=== PATIENT | female | born 1940 | race Caucasian/White ===

== ENCOUNTER 2022-11-08 05:55 | Outpatient (REF) | payer MEDICARE, SELFPAY ==
[2022-11-08 06:42] LABS: Alanine Aminotransferase 12 U/L (0-31); Albumin Level 2.3 g/dL (3.5-5.0); Alkaline Phosphatase 55 U/L (39-117); Anion Gap 13 (12-20); Aspartate Amino Transferase 19 U/L (5-31); Bilirubin Total 0.2 mg/dL (0.0-1.0); Blood Urea Nitrogen 17 mg/dL (9-16); Calcium 7.7 mg/dL (8.4-10.2); Carbon Dioxide 21 mmol/L (22-29); Chloride 103 mmol/L (96-108); Estimated Glomerular Filt Rate > 60; Glucose Random 73 mg/dL (60-115); Potassium 4.3 mmol/L (3.3-5.1); Sodium 133 mmol/L (135-145); Total Protein 5.3 g/dL (6.5-8.0)
[2022-11-08 06:59] LABS: Basophils Absolute Auto 0.1 X10*3/uL (0.0-0.2); Basophils Percent Auto 0.7 % (0-2); Eosinophils Absolute Auto 0.3 X10*3/uL (0.0-0.4); Hematocrit 22.6 % (37.0-47.0); Imm Gran Abs Auto 0.07 X10*3/uL (0.00-0.03); Imm Gran Pct Auto 0.6 % (0.0-0.4); Lymphocytes Absolute Auto 3.5 X10*3/uL (1.2-4.9); MANUAL DIFF FLAG SCAN; Mean Corpuscular Hemoglobin 25.8 pg (27.0-33.0); Mean Corpuscular Volume 83.4 fL (80.0-98.0); Mean Platelet Volume 9.4 fL (9.4-12.3); Monocytes Absolute Auto 1.5 X10*3/uL (0.1-1.2); Monocytes Percent Auto 12.3 % (2-11); Neutrophils Percent Auto 56.4 % (45-73); Platelet Count 371 X10*3/uL (160-400); Red Blood Count 2.71 X10*6/uL (4.20-5.50); Red Cell Distribution Width 14.8 % (11.0-16.0); SCAN SMEAR FLAG 1; White Blood Count 12.4 X10*3/uL (4.8-10.8)
[2022-11-08 08:16] LABS: SLIDE REVIEW VERIFIED
== END 2022-11-08 05:56 | disposition home or self-care (01) ==
LOC: HO.MMNH2L 05:55
PROVIDERS: Visit Provider Family Medicine
DX: I10 Essential (primary) hypertension (principal); E11.9 Type 2 diabetes mellitus without complications; E78.5 Hyperlipidemia, unspecified
CPT/HCPCS: 36415; 80053; 85025

== ENCOUNTER 2022-11-15 06:10 | Outpatient (REF) | payer MEDICARE, SELFPAY ==
[2022-11-15 06:03] LABS: MANUAL DIFF FLAG NO
[2022-11-15 07:09] LABS: Basophils Absolute Auto 0.1 X10*3/uL (0.0-0.2); Basophils Percent Auto 0.9 % (0-2); Eosinophils Absolute Auto 0.5 X10*3/uL (0.0-0.4); Eosinophils Percent Auto 4.6 % (0-4); Hematocrit 22.3 % (37.0-47.0); Imm Gran Abs Auto 0.05 X10*3/uL (0.00-0.03); Imm Gran Pct Auto 0.4 % (0.0-0.4); Lymphocytes Absolute Auto 2.8 X10*3/uL (1.2-4.9); Lymphocytes Percent Auto 24.3 % (20-40); Mean Corpuscular HGB Conc 30.9 g/dl (31.0-35.0); Mean Corpuscular Hemoglobin 25.7 pg (27.0-33.0); Mean Corpuscular Volume 83.2 fL (80.0-98.0); Mean Platelet Volume 9.5 fL (9.4-12.3); Monocytes Absolute Auto 1.3 X10*3/uL (0.1-1.2); Neutrophils Absolute Auto 6.7 x10*3/uL (2.0-8.3); Neutrophils Percent Auto 58.8 % (45-73); Platelet Count 415 X10*3/uL (160-400); Red Blood Count 2.68 X10*6/uL (4.20-5.50); Red Cell Distribution Width 14.9 % (11.0-16.0); White Blood Count 11.4 X10*3/uL (4.8-10.8)
[2022-11-15 07:28] LABS: Hemoglobin 6.9 g/dl (12.0-16.0)
[2022-11-15 09:55] LABS: Anion Gap 11 (12-20); Blood Urea Nitrogen 20 mg/dL (9-16); Carbon Dioxide 21 mmol/L (22-29); Chloride 103 mmol/L (96-108); Estimated Glomerular Filt Rate 48; Glucose Random 78 mg/dL (60-115); Sodium 130 mmol/L (135-145)
== END 2022-11-15 06:11 | disposition home or self-care (01) ==
LOC: HO.MMNH2L 06:10
PROVIDERS: Visit Provider Family Medicine
DX: E11.9 Type 2 diabetes mellitus without complications (principal); I10 Essential (primary) hypertension; E78.5 Hyperlipidemia, unspecified
CPT/HCPCS: 36415; 80048; 85025